=== PATIENT | female | born 1950 ===

== ENCOUNTER 2018-08-07 07:11 | Outpatient (CLI) | payer OTHER | END 2018-08-07 07:13 | disposition home or self-care (01) | LOC: SONOGRAMA 07:11 | DX: E04.1 Nontoxic single thyroid nodule (principal) ==

== ENCOUNTER 2024-03-09 09:00 | Outpatient (CLI) | payer OTHER | END 2024-03-09 12:53 | disposition home or self-care (01) | LOC: SONOGRAMA 09:00 | PROVIDERS: ATTEND Pathology Anatomic Pathology & Clinical Pathology | DX: D44.0 Neoplasm of uncertain behavior of thyroid gland (principal); E04.2 Nontoxic multinodular goiter ==